=== PATIENT | male | born 1960 | race Hispanic/Latino ===

== ENCOUNTER 2022-04-26 10:31 | Emergency (ER) | payer SELFPAY ==
[2022-04-26 10:47] VITALS: BP 142/74
--- NOTE | 2022-04-26 11:39 | XRay Report ---
CHEST 2 VIEWS INDICATION / CLINICAL INFORMATION: sob. COMPARISON: None available. FINDINGS: SUPPORT DEVICES: None. HEART / MEDIASTINUM: There is borderline to mild cardiomegaly. LUNGS / PLEURA: There is diffuse pulmonary vascular indistinctness throughout both lungs suggesting p ulmonary venous congestion. No evidence for focal infiltrate, large pleural effusion or pneumothorax. ADDITIONAL FINDINGS: No significant additional findings. IMPRESSION: 1. Mild cardiomegaly and pulmonary congestion but no CHF. Signer Name: Diomedes Sr Jr, MD Signed: 04/26/2022 11:34 AM Workstation Name: [id number]
[2022-04-26 12:08] LABS: Basophils # (Auto) 0.1 K/mm3 (0.0-0.1); Basophils % (Auto) 1.2 % (0.0-1.8); Eosinophils # (Auto) 0.2 K/mm3 (0.0-0.4); Eosinophils % (Auto) 2.4 % (0.0-4.3); Hemoglobin 12.2 gm/dl (11.8-15.2); Lymphocytes # (Auto) 1.8 K/mm3 (1.2-5.4); Lymphocytes % (Auto) 24.6 % (13.4-35.0); Mean Corpuscular HGB Conc 32 % (32-34); Mean Corpuscular Volume 88 fl (84-94); Monocytes # (Auto) 0.5 K/mm3 (0.0-0.8); Monocytes % (Auto) 6.5 % (0.0-7.3); Platelet Count 201 K/mm3 (140-440); Red Blood Count 4.34 M/mm3 (3.65-5.03); Red Cell Distribution Width 14.4 % (13.2-15.2)
[2022-04-26 12:22] LABS: Alanine Aminotransferase 46 units/L (7-56); Albumin 3.6 g/dL (3.9-5); BUN/Creatinine Ratio 18; Blood Urea Nitrogen 14 mg/dL (9-20); Calcium 9.1 mg/dL (8.4-10.2); Hemolysis Index 5
--- NOTE | 2022-04-26 21:52 | Emergency Department Report ---
ED General Adult HPI - General Chief complaint: Dyspnea/Respdistress Stated complaint: DIFFICULTY BREATHING Time Seen by Provider: 04/26/22 21:44 Source: EMS Mode of arrival: Stretcher Limitations: No Limitations - History of Present Illness Initial comments: Patient 61-year-old male history of hypertension, CAD, COPD, bronchitis who presents for shortness of breath intermittently x2 weeks patient denies fevers or chills no nausea vomiting no chest pain no diaphoresis. Patient rates symptoms at 3/10. Symptoms are exacerbated by environmental exposure. Symptoms are relieved by nothing tried. Patient states symptoms are improved at this time requesting evening meal. Patient states homeless and would really appreciate food. Patient appears nontoxic and with no acute distress at this time respirations are even and nonlabored. - Related Data Previous Rx's Medication Instructions Recorded Last Taken Type Albuterol Mdi (or & Nicu Only) 2 puff IH QID PRN #8.5 gram 04/26/22 Unknown Rx [ProAir HFA Inhaler] Azithromycin 250 mg PO DAILY 5 Days #5 tab 04/26/22 Unknown Rx Fluticasone Propionate [Flovent 1 puff IH BID #1 each 04/26/22 Unknown Rx Diskus] predniSONE [Deltasone] 40 mg PO DAILY 5 Days #10 tab 04/26/22 Unknown Rx Allergies Allergy/AdvReac Type Severity Reaction Status Date / Time No Known Allergies Allergy Verified 04/26/22 10:45 ED Review of Systems ROS: Stated complaint: DIFFICULTY BREATHING Other details as noted in HPI Constitutional: denies: chills, fever Eyes: denies: eye pain, eye discharge, vision change ENT: denies: ear pain, throat pain Respiratory: cough, shortness of breath. denies: orthopnea, SOB with exertion, wheezing Cardiovascular: denies: chest pain, palpitations, dyspnea on exertion, paroxysmal nocturnal dyspnea Endocrine: no symptoms reported Gastrointestinal: denies: abdominal pain, nausea, diarrhea Genitourinary: as per HPI Musculoskeletal: denies: back pain, joint swelling, arthralgia Skin: denies: rash, lesions Neurological: denies: headache, weakness, paresthesias, vertigo Psychiatric: denies: anxiety, depression Hematological/Lymphatic: denies: easy bleeding, easy bruising ED Past Medical Hx - Past Medical History Previous Medical History?: Yes Hx Congestive Heart Failure: Yes Hx COPD: Yes - Medications Home Medications: Home Medications Medication Instructions Recorded Confirmed Last Taken Type Albuterol Mdi (or & Nicu Only) 2 puff IH QID PRN #8.5 gram 04/26/22 Unknown Rx [ProAir HFA Inhaler] Azithromycin 250 mg PO DAILY 5 Days #5 tab 04/26/22 Unknown Rx Fluticasone Propionate [Flovent 1 puff IH BID #1 each 04/26/22 Unknown Rx Diskus] predniSONE [Deltasone] 40 mg PO DAILY 5 Days #10 tab 04/26/22 Unknown Rx ED Physical Exam - General Limitations: No Limitations General appearance: alert, in no apparent distress - Head Head exam: Present: normocephalic, normal inspection - Eye Eye exam: Present: normal appearance, EOMI Pupils: Present: normal accommodation - ENT ENT exam: Present: normal orophraynx, mucous membranes moist, TM's normal bilaterally, normal external ear exam - Neck Neck exam: Present: normal inspection, full ROM. Absent: tenderness, lymphadenopathy - Respiratory Respiratory exam: Present: normal lung sounds bilaterally. Absent: respiratory distress, wheezes, stridor, chest wall tenderness, prolonged expiratory - Cardiovascular Cardiovascular Exam: Present: regular rate, normal rhythm, normal heart sounds. Absent: systolic murmur, diastolic murmur, rubs, gallop - GI/Abdominal GI/Abdominal exam: Present: soft, normal bowel sounds. Absent: distended, tenderness - Rectal Rectal exam: Present: deferred - Extremities Exam Extremities exam: Present: normal inspection - Back Exam Back exam: Present: normal inspection, full ROM. Absent: CVA tenderness (R), CVA tenderness (L) - Neurological Exam Neurological exam: Present: alert, oriented X3, CN II-XII intact, normal gait - Psychiatric Psychiatric exam: Present: normal affect, normal mood - Skin Skin exam: Present: warm, dry, intact, normal color. Absent: rash ED Course Vital Signs 04/26/22 10:45 Temperature 98.2 F Pulse Rate 84 Respiratory 18 Rate Blood Pressure 142/74 [Right] O2 Sat by Pulse 97 Oximetry ED Medical Decision Making - Lab Data Result diagrams: 04/26/22 11:36 04/26/22 11:36 - EKG Data EKG shows normal: sinus rhythm, axis, intervals, QRS complexes Rate: tachycardia - EKG Data Interpretation: no acute changes (Sinus tach left atrial enlargement enlargement old inferior infarct nonspecific ST abnormalities in lateral leads no change from previous EKGs there is no ST elevated DC interpreted by ED attending.) - Radiology Data Radiology results: report reviewed, image reviewed CHEST 2 VIEWS INDICATION / CLINICAL INFORMATION: sob. COMPARISON: None available. FINDINGS: SUPPORT DEVICES: None. HEART / MEDIASTINUM: There is borderline to mild cardiomegaly. LUNGS / PLEURA: There is diffuse pulmonary vascular indistinctness throughout both lungs suggesting pulmonary venous congestion. No evidence for focal infiltrate, large pleural effusion or pneumothorax. ADDITIONAL FINDINGS: No significant additional findings. IMPRESSION: 1. Mild cardiomegaly and pulmonary congestion but no CHF. Signer Name: Diomedes Agustin Jr, MD Signed: 04/26/2022 11:34 AM Workstation Name: [id number] Transcribed By: TTR Dictated By: DIOMEDES AGUSTIN JR, MD Electronically Authenticated By: DIOMEDES AGUSTIN JR, MD Signed Date/Time: 04/26/221133 DD/ 33 TD/TT: - Medical Decision Making There is no wheezing no shortness of breath no productive cough no fever chills no chest pain at this time patient is resting quietly. Patient is tolerating p.o. intake patient has ambulated from room to restroom and returned to room without increased shortness of breath or wheezing. Plan DC to home with pres criptions, follow-up primary care doctor in 2 to 3 days. Return to emergency should symptoms worsen. Patient verbalized agreement and understanding with discharge plan. Patient DC'd home in stable condition at this time. Critical care attestation.: If time is entered above; I have spent that time in minutes in the direct care of this critically ill patient, excluding procedure time. ED Disposition Clinical Impression: COPD (chronic obstructive pulmonary disease) Qualifiers: COPD type: unspecified COPD Qualified Code(s): J44.9 - Chronic obstructive pulmonary disease, unspecified Disposition: 01 HOME / SELF CARE / HOMELESS Is pt being admited?: No Does the pt Need Aspirin: No Condition: Stable Instructions: Chronic Obstructive Pulmonary Disease (ED), Chronic Obstructive Pulmonary Disease Exacerbation, [id number] Additional Instructions: Take medications as prescribed. Follow-up with your primary care doctor in 2 to 3 days. Return to the emergency department should symptoms worsen. Prescriptions: Azithromycin 250 mg PO DAILY 5 Days #5 tab predniSONE [Deltasone] 40 mg PO DAILY 5 Days #10 tab Fluticasone Propionate [Flovent Diskus] 1 puff IH BID #1 each Albuterol Mdi (or & Nicu Only) [ProAir HFA Inhaler] 2 puff IH QID PRN #8.5 gram PRN Reason: Shortness Of Breath Referrals: SHAILESH KERR MD [Staff Physician] - 3-5 Days Forms: Work/School Release Form(ED) Time of Disposition: 22:47
--- NOTE | 2022-04-28 09:12 | Electrocardiograph Report ---
[facility] Test Date: 2022-04-26 Test Time: 10:57:16 Pat Name: NICANOR CONNOLLY Department: Room: Gender: M Resident Care Technician: KURT : 1960 Requested By: SONIDO BLAKELY Order Number: [id number] Reading MD: Ric Loya Measurements Intervals Hendrix Rate: 110 P: 83 CA: 158 QRS: -61 QRSD: 83 T: 80 QT: 332 QTc: 450 Interpretive Statements Sinus tachycardia Left atrial enlargement Inferior infarct, old Nonspecific T abnormalities, lateral leads No previous ECG available for comparison Electronically Signed On 04-28-2022 9:11:53 EDT by Ric Loya
== END 2022-04-27 01:00 | disposition home or self-care (01) ==
LOC: ED 10:31
DX: J44.9 Chronic obstructive pulmonary disease, unspecified (principal); I50.9 Heart failure, unspecified
CPT/HCPCS: 36415; 71046; 80053; 84484; 85025; 93005; 99284